=== PATIENT | female | born 1985 | race Caucasian/White ===

== ENCOUNTER 2019-07-09 15:06 | Outpatient (CLI) | payer OTHER ==
[~2019-07-09] VITALS: Ht 165.1 cm; Wt 103.6 kg
[~2019-07-09 15:06] MED LIST: DOXY100T PO; IBUP-1222 PO; OXYC-302 PO; SERT50TA PO
[2019-07-09 15:43] VITALS: BP 133/62
[2019-07-09] MEDS ORDERED: PREN1TAB10 PO (16:34)
== END 2019-07-09 17:00 | disposition home or self-care (01) ==
LOC: LDOP 15:06
PROVIDERS: ATTEND Obstetrics & Gynecology
DX: O42.92 Full-term premature rupture of membranes, unspecified as to length of time between rupture and onset of labor (principal); Z3A.37 37 weeks gestation of pregnancy
CPT/HCPCS: 59025; 89060; 99201; G0463; Q0114

== ENCOUNTER 2019-07-18 15:45 | Inpatient (IN) | payer OTHER ==
[~2019-07-18] VITALS: Ht 165.1 cm; Wt 104.0 kg
[~2019-07-18 15:45] MED LIST changes: +PREN1TAB10 PO
[2019-07-18] MEDS ORDERED: NEWBORN KIT ONE (16:46)
[2019-07-18] MEDS ORDERED: OXYTOCIN 30U/ 0.9% NaCL 500ML 500 ML ONE (16:47)
[2019-07-18] MEDS ORDERED: LIDOCAINE 1%, 20ML ONE (16:47)
[2019-07-18] MEDS ORDERED: MISOPROSTOL 200 MCG TABLET ONE (16:47)
[2019-07-18] MEDS: D5%-LACTATED RINGERS 1,000 ML IV SCH (17:05)
[2019-07-18] MEDS ORDERED: OXYTOCIN 30U/ 0.9% NaCL 500ML 500 ML IV ONE (17:05)
[2019-07-18] MEDS: LACTATED RINGERS 1,000 ML IV SCH ×2 (17:20→23:38)
[2019-07-18] MEDS ORDERED: FENTANYL PF 100 MCG/2ML IV PRN (17:30)
[2019-07-18] MEDS ORDERED: METOCLOPRAMIDE 5 MG/ML, 2ML IVPush PRN (17:30)
[2019-07-18] MEDS ORDERED: CALCIUM CARBONATE 500 MG TAB.CHEW PO PRN (17:30)
[2019-07-18] MEDS ORDERED: SODIUM CITRATE/CITRIC ACID 30 ML UDC PO PRN (17:30)
[2019-07-18] MEDS ORDERED: TERBUTALINE 1 MG/ML, 1ML SQ PRN (17:30)
[2019-07-18] MEDS ORDERED: TERBUTALINE 1 MG/ML, 1ML IVPush PRN (17:30)
[2019-07-18] MEDS ORDERED: ONDANSETRON 2MG/ML, 2ML IVPush PRN (17:30)
[2019-07-18 17:47] LABS: BASOPHILS # (AUTO) 0.02 x10^3/uL (0-0.1); BASOPHILS % (AUTO) 0 % (0-1); EOSINOPHILS # (AUTO) 0.08 x10^3/uL (0-0.4); EOSINOPHILS % (AUTO) 1 % (1-7); LYMPHOCYTES # (AUTO) 2.48 x10^3/uL (1-3.4); LYMPHOCYTES % (AUTO) 18 % (22-44); MD NO; MEAN CORPUSCULAR HEMOGLOBIN 29.5 pg (27.0-34.8); MEAN CORPUSCULAR HGB CONC 33.4 g/dL (32.4-35.8); MEAN CORPUSCULAR VOLUME 88.6 fL (80-100); MEAN PLATELET VOLUME 8.8 fL (7.4-10.4); MONOCYTES # (AUTO) 0.66 x10^3/uL (0.2-0.8); MONOCYTES % (AUTO) 5 % (2-9); NEUTROPHILS % (AUTO) 77 % (42-75); PLATELET COUNT 249 x10^3/uL (130-400); RED CELL DISTRIBUTION WIDTH 14.4 % (9.6-15.2)
[2019-07-18] MEDS ORDERED: OXYTOCIN 30U/ 0.9% NaCL 500ML 500 ML IV PRN (19:07)
[2019-07-19] MEDS: D5%-LACTATED RINGERS 1,000 ML IV SCH ×3 (01:05→17:05)
[2019-07-19] MEDS ORDERED: FENTANYL PF 100 MCG/2ML ONE ×2 (04:27→05:41)
[2019-07-19] MEDS: FENTANYL PF 100 MCG/2ML IVPush PRN ×3 (04:29→19:33)
[2019-07-19] MEDS ORDERED: FENTANYL/BUPIV./NS/PF 250 ML EPIDCONT SCH ×2 (05:49→07:06)
[2019-07-19] MEDS: LACTATED RINGERS 1,000 ML IV SCH ×4 (06:01→17:05)
[2019-07-19] MEDS ORDERED: BUPIVACAINE 0.25% ONE (06:10)
[2019-07-19] MEDS ORDERED: LIDOCAINE/PF 1.5%-EPI 1:200K, 30ML ONE (06:12)
[2019-07-19] MEDS ORDERED: EPHEDRINE 50 MG/ML, 1ML ONE (06:41)
[2019-07-19] MEDS ORDERED: EPHEDRINE 50 MG/ML, 1ML IVPush PRN (07:30)
[2019-07-19] MEDS ORDERED: DIPHENHYDRAMINE 50 MG/ML, 1ML IVPush PRN (07:30)
[2019-07-19] MEDS ORDERED: NALOXONE 0.4 MG/ML, 1ML IVPush PRN (07:30)
[2019-07-19] MEDS ORDERED: LACTATED RINGERS 1,000 ML IVBOLUS PRN (07:30)
[2019-07-19] MEDS ORDERED: ONDANSETRON 2MG/ML, 2ML IVPush PRN (07:30)
[2019-07-19] MEDS ORDERED: ONDANSETRON 2MG/ML, 2ML IV PRN (08:00)
[2019-07-19] MEDS ORDERED: MISOPROSTOL 200 MCG TABLET PR PRN (08:00)
[2019-07-19] MEDS ORDERED: DIPH,PERTUSS(ACELL),TET VAC/PF NC IM-VACC PRN (08:00)
[2019-07-19] MEDS ORDERED: SIMETHICONE 80 MG CHEW TAB PO PRN (08:00)
[2019-07-19] MEDS ORDERED: OXYcodone/APAP 5/325MG TABLET PO PRN ×2 (08:00)
[2019-07-19] MEDS ORDERED: RHOGAM FROM BLOOD BANK 1 NOTE EA IM/IV ONE (08:00)
[2019-07-19] MEDS ORDERED: DOCUSATE 100 MG CAPSULE PO PRN (08:00)
[2019-07-19] MEDS ORDERED: MAGNESIUM HYDROXIDE 8%, 30ML UDC PO PRN (08:00)
[2019-07-19] MEDS ORDERED: ACETAMINOPHEN 325 MG TABLET PO PRN ×2 (08:00)
[2019-07-19] MEDS ORDERED: IBUPROFEN 600 MG TABLET ONE (08:30)
[2019-07-19] MEDS ORDERED: OXYTOCIN 30U/ 0.9% NaCL 500ML 500 ML ONE (08:30)
[2019-07-19] MEDS: PRENATAL VIT/IRON/FA 1 EACH TABLET PO SCH (09:00)
[2019-07-19] MEDS: IBUPROFEN 600 MG TABLET PO PRN ×2 (09:18→18:24)
[2019-07-19] MEDS: OXYTOCIN 30U/ 0.9% NaCL 500ML 500 ML IV SCH ×2 (09:18→17:55)
[2019-07-19 10:39] VITALS: BP 107/65
[2019-07-19 14:20] LABS: BASOPHILS # (AUTO) 0.05 x10^3/uL (0-0.1); BASOPHILS % (AUTO) 0 % (0-1); EOSINOPHILS # (AUTO) 0.01 x10^3/uL (0-0.4); EOSINOPHILS % (AUTO) 0 % (1-7); LYMPHOCYTES # (AUTO) 2.21 x10^3/uL (1-3.4); LYMPHOCYTES % (AUTO) 15 % (22-44); MD NO; MEAN CORPUSCULAR HEMOGLOBIN 29.7 pg (27.0-34.8); MEAN CORPUSCULAR HGB CONC 33.6 g/dL (32.4-35.8); MEAN CORPUSCULAR VOLUME 88.3 fL (80-100); MEAN PLATELET VOLUME 8.6 fL (7.4-10.4); MONOCYTES # (AUTO) 0.75 x10^3/uL (0.2-0.8); MONOCYTES % (AUTO) 5 % (2-9); NEUTROPHILS # (AUTO) 12.26 x10^3/uL (1.8-6.8); NEUTROPHILS % (AUTO) 80 % (42-75); PLATELET COUNT 218 x10^3/uL (130-400); RED BLOOD COUNT 3.74 x10^6/uL (3.82-5.3); RED CELL DISTRIBUTION WIDTH 14.1 % (9.6-15.2)
[2019-07-19 17:15] VITALS: BP 111/71
[2019-07-19 19:49] VITALS: BP 103/69
[2019-07-20] VITALS: BP 109/66
[2019-07-20] MEDS: OXYTOCIN 30U/ 0.9% NaCL 500ML 500 ML IV SCH (03:55)
[2019-07-20 04:00] VITALS: BP 105/63
[2019-07-20] MEDS: IBUPROFEN 600 MG TABLET PO PRN (06:16)
[2019-07-20 08:05] VITALS: BP 107/69
[2019-07-20] MEDS: PRENATAL VIT/IRON/FA 1 EACH TABLET PO SCH (08:21)
[2019-07-20] MEDS ORDERED: IBUP200T49 PO (10:27)
== END 2019-07-20 13:48 | disposition home or self-care (01) | DRG 806 ==
LOC: LDOP 15:45 → LDIP 17:10 → 2NW 07-19 10:24
PROVIDERS: ADMIT Obstetrics & Gynecology; ATTEND Obstetrics & Gynecology
PROC: 10E0XZZ Delivery of Products of Conception, External Approach (ICD-10-PCS; principal; 2019-07-19)
PROC: 3E0R3BZ Introduction of Anesthetic Agent into Spinal Canal, Percutaneous Approach (ICD-10-PCS; 2019-07-19)
PROC: 00HU33Z Insertion of Infusion Device into Spinal Canal, Percutaneous Approach (ICD-10-PCS; 2019-07-19)
PROC: 10907ZC Drainage of Amniotic Fluid, Therapeutic from Products of Conception, Via Natural or Artificial Opening (ICD-10-PCS; 2019-07-19)
PROC: 3E033VJ Introduction of Other Hormone into Peripheral Vein, Percutaneous Approach (ICD-10-PCS; 2019-07-19)
DX: O76 Abnormality in fetal heart rate and rhythm complicating labor and delivery (principal); O10.92 Unspecified pre-existing hypertension complicating childbirth; Z37.0 Single live birth; O99.354 Diseases of the nervous system complicating childbirth; Z3A.39 39 weeks gestation of pregnancy; Z82.49 Family history of ischemic heart disease and other diseases of the circulatory system; Z83.3 Family history of diabetes mellitus; O99.344 Other mental disorders complicating childbirth; G43.909 Migraine, unspecified, not intractable, without status migrainosus; F32.9 Major depressive disorder, single episode, unspecified
CPT/HCPCS: 36415; J3490; 85025; 86592; 86850; 86900; G0378; J3010; J2590; J7120